=== PATIENT | female | born 1995 | race Caucasian/White ===

== ENCOUNTER 2020-07-01 12:25 | Emergency (ER) | payer SELFPAY ==
[2020-07-01] MEDS ORDERED: ONDANSETRON 4 MG/2 ML VIAL ONE (12:32)
[2020-07-01] MEDS ORDERED: ONDANSETRON 4 MG/2 ML VIAL IVPB ONE (12:33)
[2020-07-01] MEDS ORDERED: SODIUM CHLORIDE 1,000 ML IV STA (12:33)
[2020-07-01] MEDS ORDERED: NALOXONE HCL 0.4 MG/ML VIAL IVPUSH ONE (12:33)
[2020-07-01 12:43] VITALS: BMI 25.7
[2020-07-01 13:09] LABS: BASO % 2.9 % (0-2.0); EOS % 2.1 % (0-4.5); HEMATOCRIT 38.4 % (32.4-45.2); HEMOGLOBIN 12.9 GM/dl (10.7-15.3); LYMPH % 43.8 % (8-40); MCH 30.3 pg (25.7-33.7); MCHC 33.6 g/dl (32.0-36.0); MEAN CELL VOLUME 90.1 fl (80-96); MEAN PLT VOLUME 7.8 fl (7.5-11.1); MONO % 9.3 % (3.8-10.2); NEUT % 41.9 % (42.8-82.8); PLATELET COUNT 385 K/MM3 (134-434); RBC 4.26 M/mm3 (3.60-5.2); RDW 14.6 % (11.6-15.6)
[2020-07-01] MEDS ORDERED: NALOXONE HCL 0.4 MG/ML VIAL ONE (13:29)
[2020-07-01 13:49] VITALS: BP 122/70; PULSE 89; TEMP 97.8
== END 2020-07-01 13:05 | disposition left against medical advice (07) ==
LOC: FER 12:25
PROC: 3E033NZ Introduction of Analgesics, Hypnotics, Sedatives into Peripheral Vein, Percutaneous Approach (ICD-10-PCS; principal; 2020-07-01)
PROC: 3E033GC Introduction of Other Therapeutic Substance into Peripheral Vein, Percutaneous Approach (ICD-10-PCS; 2020-07-01)
PROC: 3E0337Z Introduction of Electrolytic and Water Balance Substance into Peripheral Vein, Percutaneous Approach (ICD-10-PCS; 2020-07-01)
DX: T40.411A Poisoning by fentanyl or fentanyl analogs, accidental (unintentional), initial encounter (principal)
CPT/HCPCS: 36415; 85025; 93005; 99284-25